=== PATIENT | male | born 1990 | race American Indian/Alaskan Native ===

== ENCOUNTER 2021-10-09 14:10 | Emergency (ER) | payer OTHER ==
[2021-10-09 14:27] VITALS: BP 125/71
[2021-10-09] MEDS ORDERED: SODIUM CHLORIDE 0.9% IRR 500 ML BOTTLE IR ONE (14:35)
[2021-10-09] MEDS ORDERED: TETANUS,DIPH,PERTUSS(ACELL) VACCINE 0.5 ML SYRINGE IM ONE (14:35)
--- NOTE | 2021-10-09 15:44 | Emergency Department Report ---
ED Animal Bite HPI - General Chief Complaint: Animal Bite Stated Complaint: BAD CUT ON HAND, BLEEDING Time Seen by Provider: 10/09/21 14:35 Source: patient Mode of arrival: Ambulatory Limitations: No Limitations - History of Present Illness Initial Comments: 21-year-old male with no significant past medical history reports to the ER today after receiving a dog bite while trying to break up to known dog's to him. Patient reports that the dog is up-to-date with rabies vaccination. Patient reports a smaller of the 2 dogs bit him. No deformity is noted range of motion is intact no decrease in sensation in his hand is present. Patient reports no other acute symptoms at this moment MD Complaint: animal bite - Related Data Previous Rx's Medication Instructions Recorded Last Taken Type Amoxicillin/K Clav Tab [Augmentin 1 tab PO Q12HR 10 Days #20 tab 10/09/21 Unknown Rx 875 mg] Ibuprofen [Motrin] 600 mg PO Q8H PRN 7 Days #21 tablet 10/09/21 Unknown Rx Allergies Allergy/AdvReac Type Severity Reaction Status Date / Time No Known Allergies Allergy Unverified 10/09/21 14:27 ED Review of Systems ROS: Stated complaint: BAD CUT ON HAND, BLEEDING Other details as noted in HPI Constitutional: denies: chills, fever Eyes: denies: eye pain, eye discharge, vision change ENT: denies: ear pain, throat pain Respiratory: denies: cough, shortness of breath, wheezing Cardiovascular: denies: chest pain, palpitations Endocrine: no symptoms reported Gastrointestinal: denies: abdominal pain, nausea, diarrhea Genitourinary: denies: urgency, dysuria Musculoskeletal: other (Right hand injury due to dog bite). denies: back pain, joint swelling, arthralgia Skin: other (Dog bite valladares to right hand). denies: rash, lesions Neurological: denies: headache, weakness, paresthesias Psychiatric: denies: anxiety, depression Hematological/Lymphatic: denies: easy bleeding, easy bruising ED Past Medical Hx - Past Medical History Previous Medical History?: No - Medications Home Medications: Home Medications Medication Instructions Recorded Confirmed Last Taken Type Amoxicillin/K Clav Tab [Augmentin 1 tab PO Q12HR 10 Days #20 tab 10/09/21 Unknown Rx 875 mg] Ibuprofen [Motrin] 600 mg PO Q8H PRN 7 Days #21 tablet 10/09/21 Unknown Rx ED Physical Exam - General Limitations: No Limitations General appearance: alert, in no apparent distress - Head Head exam: Present: atraumatic, normocephalic - Eye Eye exam: Present: normal appearance - ENT ENT exam: Present: mucous membranes moist - Neck Neck exam: Present: normal inspection - Respiratory Respiratory exam: Present: normal lung sounds bilaterally. Absent: respiratory distress - Cardiovascular Cardiovascular Exam: Present: regular rate, normal rhythm. Absent: systolic murmur, diastolic murmur, rubs, gallop - GI/Abdominal GI/Abdominal exam: Present: soft, normal bowel sounds - Rectal Rectal exam: Present: deferred - Extremities Exam Extremities exam: Present: normal inspection - Expanded Upper Extremity Exam Right General: Present: other (Right hand with dog markings present, full range of motion is noted in right hand, no deformities noted. No decrease in sensation noted. No swelling noted. No streaking noted.) - Back Exam Back exam: Present: normal inspection - Neurological Exam Neurological exam: Present: alert, oriented X3 - Psychiatric Psychiatric exam: Present: normal affect, normal mood - Skin Skin exam: Present: warm, dry, normal color, other (Right hand with dog bite valladares, 1 bite maverick to the dorsal side of right hand, and 1 bite maverick to the palmar side of hand, also to small abrasions to the palmar side of right hand). Absent: rash - Other Other exam information: Dog bite to right hand was irrigated by provider with 1000 cc of normal saline. Patient's dog bite was also cleaned with iodine then dressed with a clean nonadherent gauze. Patient also received Tdap shot No imaging is needed as there is no deformity to right hand and patient has full range of motion and no decrease in sensation in right hand. Patient stable for discharge. Patient will be started on Augmentin 875 mg twice daily for 10 days. Patient agrees with plan of care and verbalized understanding. ED Course Vital Signs 10/09/21 14:25 Temperature 98.1 F Pulse Rate 71 Respiratory 20 Rate Blood Pressure 125/71 [Right] Critical care attestation.: If time is entered above; I have spent that time in minutes in the direct care of this critically ill patient, excluding procedure time. ED Disposition Clinical Impression: Dog bite of hand Qualifiers: Encounter type: initial encounter Laterality: right Qualified Code(s): S61.451A - Open bite of right hand, initial encounter Disposition: 01 HOME / SELF CARE / HOMELESS Is pt being admited?: No Condition: Stable Instructions: Animal Bite, Adult, [id number], Animal Bite, Adult Additional Instructions: Please follow-up in ER if his symptoms get worse. Please follow with your primary care provider as needed. Prescriptions: Amoxicillin/K Clav Tab [Augmentin 875 mg] 1 tab PO Q12HR 10 Days #20 tab Ibuprofen [Motrin] 600 mg PO Q8H PRN 7 Days #21 tablet PRN Reason: Pain Referrals: ARIE ARZATE MD [Primary Care Provider] - 3-5 Days Time of Disposition: 15:48 Print Language: DJIBOUTIAN
== END 2021-10-09 16:20 | disposition home or self-care (01) ==
LOC: ED 14:10
DX: S61.431A Puncture wound without foreign body of right hand, initial encounter (principal); Z79.899 Other long term (current) drug therapy; W54.0XXA Bitten by dog, initial encounter; Y93.89 Activity, other specified; Y92.89 Other specified places as the place of occurrence of the external cause; Y99.8 Other external cause status
CPT/HCPCS: 90471; 90715; 99282